=== PATIENT | male | born 2000 ===

== ENCOUNTER 2024-10-13 11:27 | Outpatient (AMB) | payer MEDICAID, SELFPAY ==
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
[2024-10-13 11:29] VITALS: BMI 42.0
== END 2024-10-13 11:53 | disposition home or self-care (01) ==
PROVIDERS: PCP Nurse Practitioner Family; Visit Provider Physical Medicine & Rehabilitation
DX: S39.012A Strain of muscle, fascia and tendon of lower back, initial encounter (principal)
CPT/HCPCS: 99203

== ENCOUNTER → 2024-10-13 11:27 | Outpatient (BNVA) | payer MEDICAID, SELFPAY | PROVIDERS: PCP Nurse Practitioner Family; Visit Provider Physical Medicine & Rehabilitation | DX: S39.012A Strain of muscle, fascia and tendon of lower back, initial encounter (principal) | CPT/HCPCS: 99202 ==